=== PATIENT | male | born 1970 | race Caucasian/White ===

== ENCOUNTER 2018-12-17 08:42 | Day surgery (SDC) | payer BC ==
[2018-12-08 12:53] VITALS: BMI 31.9
[2018-12-17] MEDS ORDERED: BUPIVACAINE HCL 0.25% 125 MG/50 ML VIAL ONE (11:04)
[2018-12-17] MEDS ORDERED: MIDAZOLAM HCL 2 MG/2 ML SINGLE DOSE VIAL ONE (11:06)
[2018-12-17] MEDS ORDERED: PROPOFOL 20 ML ONE (11:06)
[2018-12-17] MEDS ORDERED: BUPIVACAINE HCL 0.25% 125 MG/50 ML VIAL NR ONE (11:52)
--- NOTE | 2018-12-17 12:38 | OP ---
DATE OF OPERATION: 12/17/2018 PREOPERATIVE DIAGNOSIS: Left knee medial meniscus tear. POSTOPERATIVE DIAGNOSIS: Left knee medial meniscus tear. PROCEDURE: Left knee arthroscopy with partial medial meniscectomy. SURGEON: Johnson Ballard MD [employer] HAND: PERCY Woodruff. ANESTHESIA: General. POSTOPERATIVE CONDITION: Stable. COMPLICATIONS: None. INDICATIONS: This is a pleasant gentleman suffering from medial knee pain. He was found to have medial meniscus tear on MRI. Treatment options including nonoperative versus operative management were reviewed. Operative risks were reviewed in detail including bleeding, infection, neurovascular injury, need for further surgery, postoperative pain and stiffness, progression of osteoarthritis. We discussed medical risks such as heart attack, stroke, DVT, PE, and . I addressed all of the patient's questions and concerns. He voiced understanding and elected to proceed. DESCRIPTION OF PROCEDURE: The patient was brought to the operating room where general anesthesia was administered. The left lower extremity was prepped and draped in the usual sterile fashion after administration of anesthetic. The usual time-out procedure was performed, and a preoperative dose of antibiotics was given. The left lower extremity was examined demonstrating no significant effusion and no limitations to range of motion and good stability. The landmarks were now marked out. Portals were injected subcutaneously with 0.25% Marcaine. An 11 blade was now used to establish a lateral portal. The arthroscope was passed into the knee. Examination of the patellofemoral joint demonstrated some mild superficial cartilage streaking. Passing the arthroscope into the notch demonstrated intact ACL and PCL. Passing the arthroscope medially, the meniscus tear was visualized. A medial portal was now established under spinal needle localization. Using a combination of meniscal biter and a shaver, the meniscus was debrided down to a stable base. The arthroscope was now passed into the lateral compartment. Here, no meniscal pathology was seen. No articular lesions were seen. The excess fluid was withdrawn from the joint. The portals were sutured using 3-0 nylon. Sterile dressings were placed. The patient was extubated and transferred to the recovery room in stable condition. JOHNSON BALLARD M.D. [facility]/[id number]
[2018-12-17] MEDS ORDERED: ONDANSETRON 4 MG/2 ML VIAL IVPUSH PRN (13:28)
[2018-12-17] MEDS ORDERED: oxyCODONE HCL 5 MG TABLET PO PRN ×2 (13:28)
[2018-12-17] MEDS ORDERED: PROMETHAZINE HCL 25 MG/1 ML VIAL IVPUSH PRN (13:28)
[2018-12-17 13:34] VITALS: TEMP 97.7
[2018-12-17 15:26] VITALS: BP 126/72; PULSE 74
== END 2018-12-17 14:15 | disposition home or self-care (01) ==
LOC: FASU 08:42
PROVIDERS: ATTEND Orthopaedic Surgery Sports Medicine
PROC: 0SBD4ZZ Excision of Left Knee Joint, Percutaneous Endoscopic Approach (ICD-10-PCS; principal; 2018-12-17 11:52)
DX: S83.242A Other tear of medial meniscus, current injury, left knee, initial encounter (principal)
CPT/HCPCS: 94760